=== PATIENT | female | born 1960 | race Caucasian/White ===

== ENCOUNTER 2018-02-11 18:29 | Emergency (ER) | payer OTHER ==
[2018-02-11] MEDS ORDERED: oxyCODONE 5 MG Tab PO ONE (18:30)
[2018-02-11] MEDS ORDERED: Acetaminophen/HYDROcodone 325-10 MG Tab PO ONE (21:44)
[2018-02-11] MEDS ORDERED: oxyCODONE 5 MG Tab ONE (22:58)
--- NOTE | 2018-02-11 23:02 | EDM.PDOC ---
ED HPI GENERAL MEDICAL PROBLEM - General Chief Complaint: Upper Extremity Injury/Pain Stated Complaint: [id number] POSSIBLE BROKEN ARM Time Seen by Provider: 02/11/18 19:10 Source of Information: Reports: Patient History Limitations: Reports: No Limitations - History of Present Illness INITIAL COMMENTS - FREE TEXT/NARRATIVE: C/O pain to left upper extremity from shoulder to wrist. States fell over bucket while at work and landed on left elbow [employer]. 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 Left Elbow Pain Score (Numeric/FACES): 8 - Related Data Allergies Allergy/AdvReac Type Severity Reaction Status Date / Time naproxen [From Naprosyn] Allergy Hives Verified 02/11/18 18:36 Home Meds: Home Meds . [Unable to Verify Home Med List] 02/11/18 [History] Past Medical History - Past Health History Medical/Surgical History: Denies Medical/Surgical History Social & Family History - Tobacco Use Smoking Status *Q: Current Every Day Smoker Years of Tobacco use: 30 Packs/Tins Daily: 0.3 Review of Systems - Review of Systems Review Of Systems: ROS reveals no pertinent complaints other than HPI. ED EXAM, GENERAL - Physical Exam Exam: See Below Exam Limited By: No Limitations General Appearance: Alert, Mild Distress Eye Exam: Bilateral Eye: EOMI Ears: Normal External Exam, Hearing Grossly Normal Nose: Normal Inspection Throat/Mouth: Normal Inspection Head: Atraumatic, Normocephalic Neck: Normal Inspection, Full Range of Motion Respiratory/Chest: No Respiratory Distress, Lungs Clear Cardiovascular: Normal Peripheral Pulses, Regular Rate, Rhythm Peripheral Pulses: 2+: Radial (L) Extremities: Joint Swelling (mild elbow), Arm Pain, Limited Range of Motion. No : Normal Range of Motion Neurological: Alert, Oriented, Normal Cognition Psychiatric: Normal Affect, Normal Mood Skin Exam: Warm, Dry, Intact, Ecchymosis (mild mild, skin intact) ED TRAUMA EXTREMITY PROCEDURES - Splinting Left Upper Extremity Pre-Procedure NV Status: Normal Post-Procedure NV Status: Normal Splint Material: Fiberglass, Sling Splint Design: Posterior Applied & Form Fitted By: Provider Provider Post-Splint Application NV Check: NV Status Normal Complications: No Course - Vital Signs Last Recorded V/S: Last Vital Signs Temp 99.5 F 02/11/18 18:34 Pulse 101 H 02/11/18 18:34 Resp 19 02/11/18 18:34 BP 158/84 H 02/11/18 18:34 Pulse Ox 97 02/11/18 18:34 - Orders/Labs/Meds Meds: Medications Discontinued Medications Generic Name Dose Route Start Last Admin Trade Name Clari PRN Reason Stop Dose Admin Hydrocodone Bitart/Acetaminophen 1 tab 02/11/18 21:44 Morenci 325-10 Mg PO 02/11/18 21:45 ONETIME ONE Oxycodone HCl Confirm 02/11/18 22:58 Oxycodone Administered 02/11/18 22:59 Dose 10 mg .ROUTE .STK-MED ONE - Radiology Interpretation Free Text/Narrative:: Shoulder wrist forearm negative Elbow/humerus: Fracure of capitellum with anterior displacement, radial capitellar subluxation - Re-Assessments/Exams Free Text/Narrative Re-Assessment/Exam: 02/12/18 04:[address] Gunnar Ashley [place]. Recommendation of posterior splint and sling. Patient should be foolowed by ortho later this week for surgical evaluation. Patient will need PT following surgery. Patient may contact office in am to set up follow up or arrange f/u in home local area. Patient reported UA drug and ETOH was requested by employer. No kit brought from company sent with patient. No sample obtained. Patient informed would be done as medical but would not meet usual criteria as many required by employers. Patient requesting immediate discharge reports tired from full work day and has to get up for work in early am. No lab obtained prior to requested discharge. Instructions for followup with phone and address of Dr. Ashley. Copies of xrays on CD given to patient. 0 Departure - Departure Time of Disposition: 22:55 Disposition: Home, Self-Care 01 Condition: Good Clinical Impression: Work place accident Fractured elbow Qualifiers: Encounter type: initial encounter Fracture type: closed Laterality: left Qualified Code(s): S42.402A - Unspecified fracture of lower end of left humerus , initial encounter for closed fracture - Discharge Information Instructions: Distal Humerus Elbow Fracture Referrals: PCP,Not In Area [Primary Care Provider] - Forms: ED Department Discharge Additional Instructions: follow up in am with Dr. Gunnar Ashley office, [facility] [phone] Office address [address] [facility] [place] Oxycodone 5mg one ever5 hours as needed for severe pain ice rest sling Urgent follow up if change in sensation
== END 2018-02-11 23:08 | disposition home or self-care (01) ==
LOC: DL.ED 18:29
DX: S42.402A Unspecified fracture of lower end of left humerus, initial encounter for closed fracture (principal); F17.210 Nicotine dependence, cigarettes, uncomplicated; Z88.8 Allergy status to other drugs, medicaments and biological substances; W01.198A Fall on same level from slipping, tripping and stumbling with subsequent striking against other object, initial encounter; Y99.0 Civilian activity done for income or pay
CPT/HCPCS: 29105; 73030; 73060; 73080; 73090; 73110; 99283; A9270